=== PATIENT | male | born 1960 | race Caucasian/White ===

== ENCOUNTER 2016-11-02 12:05 | Emergency (ER) | payer BC, OTHER ==
[~2016-11-02] VITALS: Ht 167.6 cm; Wt 100.0 kg
[~2016-11-02 12:05] MED LIST: CAPT25TA3
[2016-11-02 12:07] VITALS: Ht 167.6 cm; Wt 100.0 kg
--- NOTE | 2016-11-02 16:11 | RADRPT ---
PROCEDURE: XR Chest. CLINICAL INDICATION: Chest pain TECHNIQUE: Single frontal view of the chest was obtained COMPARISON: None FINDINGS: The heart is enlarged. The thoracic aorta is calcified. The lungs are clear. There is no pleural effusion or pneumothorax. RPTAT: AA IMPRESSION: Mild cardiomegaly. Calcified aorta consistent with atherosclerotic disease. .Eh Ambrosio MD, MD Date Time Electronically viewed and signed by .Eh Ambrosio MD, on 11/02/2016 16:11 .S/
[2016-11-02 16:19] LABS: ADD SCAN DIFF NO
[2016-11-02 16:22] LABS: BASOPHILS % 0.5 % (0.0-2.0); EOSINOPHILS # 0.2 10^3/ul (0.0-0.5); EOSINOPHILS % 2.7 % (0.0-7.0); HEMATOCRIT 40.1 % (42.0-52.0); HEMOGLOBIN 13.6 g/dl (14.0-18.0); LYMPHOCYTES # 1.8 10^3/ul (0.8-2.9); LYMPHOCYTES % 26.5 % (15.0-51.0); MEAN CORPUSCULAR HEMOGLOBIN 30.4 pg (29.0-33.0); MEAN CORPUSCULAR HGB CONC 33.9 g/dl (32.0-37.0); MEAN CORPUSCULAR VOLUME 89.7 fl (82.0-101.0); MEAN PLATELET VOLUME 10.2 fl (7.4-10.4); MONOCYTE # 0.4 10^3/ul (0.3-0.9); MONOCYTES % 6.5 % (0.0-11.0); NEUTROPHIL # 4.2 10^3/ul (1.6-7.5); NEUTROPHILS % 63.5 % (39.0-77.0); PLATELET COUNT 202 10^3/UL (140-415); RED BLOOD COUNT 4.47 10^6/ul (4.70-6.10); WHITE BLOOD COUNT 6.6 10^3/ul (4.8-10.8)
[2016-11-02 16:33] LABS: INR 1.11; PROTIME 14.3 Sec (12.2-14.2); PT RATIO 1.1
[2016-11-02 16:34] LABS: CHLORIDE 105 mmol/L (97-110); PARTIAL THROMBOPLASTIN TIME 28.3 Sec (25.0-35.0)
[2016-11-02 16:35] LABS: ALBUMIN 4.7 g/dl (3.3-4.9); SODIUM 143 mmol/L (135-144)
[2016-11-02 16:36] LABS: POTASSIUM 3.7 mmol/L (3.5-5.1)
--- NOTE | 2016-11-02 16:36 | ERA ---
ER Documentation Chief Complaint Date/Time DATE: 11/02/16 TIME: 16:30 Chief Complaint BILATERAL LEG PAIN W/ SOB. SENT BY PCP FOR R/O DVT AND PE. HX OF HPI Very limited historian. This is a 56-year-old male who was sent in by primary care physician for possible diagnosis of DVT. The patient reports approximately 1 year of dyspnea on exertion. He denies any chest pain, no pleuritic pain. He notes also 1 year swelling and what appear to be varicose veins the left lower extremity. His referring physicians handwriting is very difficult to read. It appears that the patient has the words DVT plus shortness of breath plus PE on the document but further writing is illegible.. Patient denies taking anticoagulant. ROS All systems reviewed and are negative except as per history of present illness. Medications Home Meds Reported Medications Aspirin* (Aspirin* EC) 81 Mg Tablet.dr, 81 MG PO DAILY, TAB 11/02/16 Gabapentin* (Gabapentin*) 300 Mg Capsule, 300 MG PO DAILY, #30 CAP 11/02/16 Amlodipine Besylate* (Amlodipine Besylate*) 10 Mg Tablet, 10 MG PO DAILY, #30 TAB 11/02/16 Lisinopril* (Lisinopril*) 40 Mg Tablet, 40 MG PO DAILY, #30 TAB 11/02/16 Discontinued Reported Medications Captopril* (Captopril*) 25 Mg Tablet 11/27/10 Allergies Allergies: Coded Allergies: No Known Drug Allergies (Verified Allergy, Mild, 11/02/16) PMhx/Soc History of Surgery: No Anesthesia Reaction: No Hx Neurological Disorder: No Hx Respiratory Disorders: Yes Hx Cardiac Disorders: Yes Hx Psychiatric Problems: No Hx Miscellaneous Medical Probl: Yes (HTN) Hx Alcohol Use: No Hx Substance Use: No Hx Tobacco Use: No FmHx Family History: No diabetes Physical Exam Vitals Vital Signs Date Time Temp Pulse Resp B/P Pulse Ox O2 Delivery O2 Flow Rate FiO2 11/02/16 18:49 97.9 53 18 152/77 98 Room Air 11/02/16 12:07 97.9 71 18 165/77 97 Physical Exam General: Well developed, well nourished, no acute distress Head: Normocephalic, atraumatic. Eyes: Pupils equally reactive, EOM intact ENT: Moist mucous membranes Neck: Supple, no lymphadenopathy Respiratory: Lungs clear bilaterally, no distress Cardiovascular: RRR, no murmurs, rubs, or gallops Abdominal: Soft, non-tender, non-distended, no peritoneal signs : Deferred MSK: Left lower extremity with significant varicosity of what appears to be the left saphenous vein. No unilateral swelling, negative Homans sign. Neurologic: Alert and oriented, moving all extremities, normal speech, no focal weakness, no cerebellar signs Skin: No rash Psych: Normal mood Result Diagram: 11/02/16 1610 11/02/16 1610 Results 24 hrs Laboratory Tests Test 11/02/16 16:10 White Blood Count 6.610^3/ul Red Blood Count 4.4710^6/ul Hemoglobin 13.6g/dl Hematocrit 40.1% Mean Corpuscular Volume 89.7fl Mean Corpuscular Hemoglobin 30.4pg Mean Corpuscular Hemoglobin Concent 33.9g/dl Red Cell Distribution Width 13.0% Platelet Count 49197^3/UL Mean Platelet Volume 10.2fl Neutrophils % 63.5% Lymphocytes % 26.5% Monocytes % 6.5% Eosinophils % 2.7% Basophils % 0.5% Nucleated Red Blood Cells % 0.0/100WBC Neutrophils # 4.210^3/ul Lymphocytes # 1.810^3/ul Monocytes # 0.410^3/ul Eosinophils # 0.210^3/ul Basophils # 0.010^3/ul Nucleated Red Blood Cells # 0.010^3/ul Prothrombin Time 14.3Sec Prothrombin Time Ratio 1.1 INR International Normalized Ratio 1.11 Activated Partial Thromboplast Time 28.3Sec Sodium Level 143mmol/L Potassium Level 3.7mmol/L Chloride Level 105mmol/L Carbon Dioxide Level 25mmol/L Anion Gap 17 Blood Urea Nitrogen 22mg/dl Creatinine 0.72mg/dl Glucose Level 116mg/dl Calcium Level 9.6mg/dl Total Bilirubin 0.6mg/dl Direct Bilirubin 0.00mg/dl Indirect Bilirubin 0.6mg/dl Aspartate Amino Transf (AST/SGOT) 24IU/L Alanine Aminotransferase (ALT/SGPT) 35IU/L Alkaline Phosphatase 69IU/L Troponin I < 0.012ng/ml B-Type Natriuretic Peptide 113PG/ML Total Protein 8.0g/dl Albumin 4.7g/dl Globulin 3.30g/dl Albumin/Globulin Ratio 1.42 Current Medications Medications (Trade) Dose Ordered Sig/Abran Route PRN Reason Start Time Stop Time Status Last Admin Dose Admin Sodium Chloride (NS) 100 ml @ ud STK-MED ONCE .ROUTE 11/02/16 17:24 11/02/16 17:25 DC 11/02/16 18:01 Iohexol 150 ml 150 ml STK-MED ONCE .ROUTE 11/02/16 17:24 11/02/16 17:25 DC Iohexol (Omnipaque) 100 ml @ ud STK-MED ONCE .ROUTE 11/02/16 17:25 11/02/16 17:26 DC 11/02/16 18:02 Iohexol (Omnipaque 350mg/ ml) 50 ml STK-MED ONCE .ROUTE 11/02/16 17:25 11/02/16 17:26 DC 11/02/16 18:02 Procedures/MDM EKG, MONITORS, & DIAGNOSTIC IMAGING: EKG: I reviewed and interpreted a 12-lead EKG. Rhythm: Normal sinus rhythm Ectopy: None Intervals: No abnormalities ST segments: No elevations or depressions T waves: No contiguous inversions Chest x-ray: I reviewed and interpreted a 1 view of the chest Mediastinum: No enlargement Cardiac silhouette: No cardiomegaly Airspace: Clear lung garcia bilaterally without evidence of pneumothorax Bones: No evidence of fracture Lower extremity duplex: No evidence of DVT CT PE IMPRESSION: 1. The patient is status post sternotomy and ascending aortic graft placement. 2. Aortic dissection is seen distal to the ascending aortic graft, as described above, most likely chronic process given presence of ascending aortic graft. Thoracic aortic aneurysm is seen as well, with maximal diameter of 5.8 cm in the proximal arch. No evidence of aortic rupture or mediastinal hematoma is seen. 3. There is mild cardiomegaly. 4. No pulmonary embolism is identified. 5. 12 mm diameter right renal artery aneurysm is noted, without evidence for rupture. A call report was made to Dr. WEN Mclaughlin on 11/02/2016 6:14:56 PM. RPTAT: HDWR LAB INTERPRETATION: Negative troponin MEDICAL DECISION MAKING: It appears the patient has a subacute presentation of greater than 1 year of symptoms. His symptoms could possibly represent dyspnea on exertion that may be related to CHF, deconditioning versus pulmonary embolism. The patient does have a significant varicosity left lower extremity however I am not convinced that this is a DVT. The patient does not take any anticoagulants. The referring providers document is eligible. The patient will benefit from laboratory testing, diagnostic imaging that include CT PE and lower extremity duplex. ER COURSE: The patient CT shows no evidence of pulmonary emboli, duplex is negative. The CT showed incidental finding of uric dissection with graft that appears to be subacute and chronic and unchanged. The patient does not have any chest pain or acute findings that would suggest worsening of this dissection or aneurysm. I was able to speak to my on-call vascular surgeon Dr. Bashir. We reviewed the case. He feels this is consistent with old and chronic issues the patient does not require hospitalization. I attempted to reach out to the patient's referring provider with no success. The patient can be safely discharged from the emergency room and follow-up with primary care physician. We discussed return precautions including worsening shortness of breath or chest pain on exertion. I kept the patient and/or family informed of laboratory and diagnostic imaging results throughout the emergency room course. DISPOSITION PLAN: We discussed follow up with the patient's primary care doctor within 24 to 48 hours as needed. We also discussed return to the emergency room for worsening symptoms or worsening condition. Outpatient referral: [None required] Departure Diagnosis: Primary Impression: Shortness of breath Additional Impression: Varicose vein of leg Condition: Stable JULISSA CARVER MD November 02, 2016 16:36
[2016-11-02 16:37] LABS: CREATININE 0.72 mg/dl (0.61-1.24)
[2016-11-02 16:38] LABS: ALANINE AMINOTRANSFERASE 35 IU/L (13-69); ALBUMIN/GLOBULIN RATIO 1.42; ALKALINE PHOSPHATASE 69 IU/L (42-121); ANION GAP 17 (8-16); ASPARTATE AMINO TRANSFERASE 24 IU/L (15-46); BILIRUBIN,INDIRECT 0.6 mg/dl (0-1.1); BILIRUBIN,TOTAL 0.6 mg/dl (0.2-1.3); BLOOD UREA NITROGEN 22 mg/dl (7-20); CALCIUM 9.6 mg/dl (8.4-10.2); CARBON DIOXIDE 25 mmol/L (21-31); GLUCOSE 116 mg/dl (70-220)
[2016-11-02] MEDS ORDERED: LISI40TA9 PO (16:45)
[2016-11-02] MEDS ORDERED: AMLO-147 PO (16:45)
[2016-11-02] MEDS ORDERED: ASPI-664 PO (16:46)
[2016-11-02] MEDS ORDERED: GABA300C16 PO (16:46)
[2016-11-02 16:53] LABS: B-TYPE NATRIURETIC PEPTIDE 113 PG/ML (0-125); TROPONIN-I < 0.012 ng/ml (0.00-0.12)
[2016-11-02] MEDS ORDERED: IOHEXOL 300MG/ML 150 ML BTL ONE (17:24)
[2016-11-02] MEDS ORDERED: SOD CHLORIDE 0.9% 100 ML ONE (17:24)
[2016-11-02] MEDS ORDERED: IOHEXOL 350MG/ML 50 ML BTL ONE (17:25)
[2016-11-02] MEDS ORDERED: IOHEXOL 100 ML ONE (17:25)
--- NOTE | 2016-11-02 18:16 | RADRPT ---
PROCEDURE: CTA Chest CLINICAL INDICATION: Chest pain TECHNIQUE: CTA of the chest was performed following the uncomplicated IV administration of 120 cc Omnipaque 350. Coronal and sagittal images were reconstructed from the axial data set. 3-D volumet renetta rendered post processing was performed as well. One or more of the following dose reduction marjan hniques were used: automated exposure control, adjustment of the mA and/or kV according to patient s ize, use of iterative reconstruction technique. CTDI = 19.83 mGy. DLP = 883.9 mGy-cm. COMPARISON: No prior studies are available for comparison. FINDINGS: The patient is status post sternotomy and ascending aortic graft placement. The thoracic aortic dis section is noted, with the intimal flap originating at the distal aspect of the ascending aortic gra ft, extending through the arch and descending thoracic aorta into the abdomen and below the level of scanning. Aortic aneurysm is present, with maximal diameter of 5.8 cm in the proximal arch (3-73) and 4.6 cm in the descending thoracic aorta. The great vessels are patent, without significant sten osis. There is no evidence of intimal flap extension into the great vessels. There is mild cardiomegaly, without pericardial effusion. No pulmonary embolism is identified. The re is no mediastinal, hilar, axillary or supraclavicular lymphadenopathy. There is minimal bibasilar atelectasis / scarring. No acute infiltrate, pleural effusion, pulmonary edema or pneumothorax is identified. The central tracheobronchial tree is clear. No pulmonary nod ule or mass is identified. 12 mm diameter right renal artery aneurysm is noted (3-238). Visualized portions of the upper abdom en are otherwise unremarkable. The osseous structures are remarkable for degenerative spondylosis o f the spine. No osteolytic or osteoblastic lesion is seen. IMPRESSION: 1. The patient is status post sternotomy and ascending aortic graft placement. 2. Aortic dissection is seen distal to the ascending aortic graft, as described above, most likely chronic process given presence of ascending aortic graft. Thoracic aortic aneurysm is seen as well, with maximal diameter of 5.8 cm in the proximal arch. No evidence of aortic rupture or mediastinal hematoma is seen. 3. There is mild cardiomegaly. 4. No pulmonary embolism is identified. 5. 12 mm diameter right renal artery aneurysm is noted, without evidence for rupture. A call report was made to Dr. WEN Mclaughlin on 11/02/2016 6:14:56 PM. RPTAT: HDWR .Mike Cotter MD, MD Date Time Electronically viewed and signed by .Mike Cotter MD, MD on 11/02/2016 18:16 .R/
[2016-11-02 18:49] VITALS: TEMP 97.9
--- NOTE | 2016-11-02 19:04 | RADRPT ---
PROCEDURE: US Lower extremity Venous. CLINICAL INDICATION: Left leg edema TECHNIQUE: Multiple sonographic images of the left lower extremity deep venous system was obtained utilizing grayscale, color-flow, compressive sonography and doppler imaging with augmentation. The images were reviewed on a PACS workstation. COMPARISON: None. FINDINGS: There is normal compressibility and flow within the left common femoral, femoral, posterior tibial, peroneal and popliteal veins. RPTAT: AA IMPRESSION: No sonographic evidence for deep venous thrombosis. .Eh Ambrosio MD, MD Date Time Electronically viewed and signed by .Eh Ambrosio MD, on 11/02/2016 19:03 .S/
[2016-11-02 20:12] VITALS: BP 150/78; PULSE 53; RESP 20
== END 2016-11-02 20:12 | disposition home or self-care (01) ==
LOC: E/R 12:05
DX: R06.02 Shortness of breath (principal); R40.2252 Coma scale, best verbal response, oriented, at arrival to emergency department; I83.92 Asymptomatic varicose veins of left lower extremity; I10 Essential (primary) hypertension; R40.2142 Coma scale, eyes open, spontaneous, at arrival to emergency department; R40.2362 Coma scale, best motor response, obeys commands, at arrival to emergency department; Z79.82 Long term (current) use of aspirin
CPT/HCPCS: 36415; 71010; 71275; 80053; 83880; 84484; 85025; 85610; 85730; 93005; 93971; 99285; Q9967